=== PATIENT | female | born 1970 | race Caucasian/White ===

== ENCOUNTER 2018-06-09 15:44 | Emergency (ER) | payer SELFPAY, MEDICAID ==
[2018-06-09] MEDS: ACETAMINOPHEN 325 MG TAB PO (18:00)
== END 2018-06-09 19:36 | disposition home or self-care (01) ==
LOC: FTE 15:44
DX: S40.011A Contusion of right shoulder, initial encounter (principal); S50.11XA Contusion of right forearm, initial encounter; S20.221A Contusion of right back wall of thorax, initial encounter; Y04.8XXA Assault by other bodily force, initial encounter; Y92.9 Unspecified place or not applicable
CPT/HCPCS: 72040; 72100; 73030-RT; 81025; 99284-25